=== PATIENT | male | born 1965 | race African-American/Black ===

== ENCOUNTER 2019-03-02 02:16 | Inpatient (IN) | payer BC, OTHER ==
[~2019-03-02] VITALS: Ht 177.8 cm; Wt 79.4 kg
[~2019-03-02 02:16] MED LIST: NOHOMEMEDICATIONS
[2019-03-02 02:23] VITALS: BP 135/103
[2019-03-02 02:51] LABS: HEMATOCRIT 47.3 % (42.0-52.0); HEMOGLOBIN 16.1 gm/dL (14.0-18.0); MCH 31.9 pg (26.0-34.0); MCV 93.8 fL (80.0-100.0); PLATELET COUNT 362 thou/uL (150-400); RBC 5.04 mil/uL (4.50-6.00); RDW 13.6 % (10.5-14.5); WBC 9.8 thou/uL (4.0-11.0)
[2019-03-02 02:59] LABS: ANION GAP 13 mmol/L (7-16); BUN 9 mg/dL (7-18); CALCIUM 9.2 mg/dL (8.5-10.1); CHLORIDE 103 mmol/L (98-107); CO2 25 mmol/L (21-32); CREATININE 0.7 mg/dL (0.7-1.3); GLUCOSE 113 mg/dL (74-106); POTASSIUM 3.4 mmol/L (3.5-5.1); SODIUM 141 mmol/L (136-145)
[2019-03-02 03:11] LABS: ALBUMIN 3.9 g/dL (3.4-5.0); MAGNESIUM 2.1 mg/dL (1.8-2.4); SGOT 18 U/L (15-37); SGPT 22 U/L (30-65); TOTAL BILIRUBIN 0.3 mg/dL (<0.1-1.0); TOTAL PROTEIN 7.7 g/dL (6.4-8.2); TROPONIN-I <0.06 ng/mL (<0.06)
[2019-03-02 04:09] LABS: ABSOLUTE NEUTROPHILS 5.1 thou/uL (1.4-8.2); PLATELET ESTIMATE NORMAL
--- NOTE | 2019-03-02 08:20 | EKG ---
[address] [place] [address] ELECTROCARDIOGRAM REPORT Name: EDIS SAMUELS Room #: 170-5 ADM IN M.R.#: [id number] ������������������ Admission: 03/02/19 ������������������ Attend Phys: Yan Hi MD Discharge: ������������������ Date of : 61 Report #: [id number] ����������������������������������������������������������������� [id number] THIS REPORT FOR: //name// [facility] ED Test Date: 2019-03-02 Test Time: 02:18:54 Pat Name: EDIS SAMUELS Department: Room: 170 Gender: M Computer Systems Auditor: NADEEM : 1965 Requested By: Manuel Burroughs Order Number: [id number] MD: Azael Rodriguez Measurements Intervals [place] Rate: 140 P: PA: QRS: -16 QRSD: 86 T: 92 QT: 324 QTc: 495 Interpretive Statements Atrial fibrillation LVH with secondary repolarization abnormality Anterior Q waves, possibly due to LVH No previous ECG available for comparison Electronically Signed On 03-02-2019 8:20:05 CDT by Azael Rodriguez [email or web address] ��������������������������������������������� <ELECTRONICALLY SIGNED> ���������������������������������������� By: Azael Rodriguez MD, [facility] ��������������������������������������������� 03/02/19 0820 0218 0218 Azael Rodriguez MD, FACC /EPI
--- NOTE | 2019-03-02 13:57 | 2DMMODE ---
[facility] [address] [place] [address] 2 D/M-MODE ECHOCARDIOGRAM Name: EDIS SAMUELS Room #: 170-5 ADM IN .R.#: [id number] ������������� Admission: 03/02/19 ������������� Attend Phys: Yan Hi MD Discharge: ��� ������������� ��� Date of : 61 Date of Service: 03/02/19 1357 �� Report #: [id number] �������� ��������������������������������������������[id number] THIS REPORT FOR: //name// APPROVED REPORT Study performed: 03/02/2019 13:01:46 EXAM: Comprehensive 2D, Doppler, and color-flow Echocardiogram Patient Location: ER Status: routine BSA: 1.97 HR: 60 bpm BP: 151/88 mmHg Rhythm: NSR Other Information Study Quality: Good Indications Atrial Fibrillation Hx: HTN, tobacco abuse. 2D Dimensions RVDd: 42.19 mm IVSd: 16.40 (7-11mm) LVOT Diam: 24.65 (18-24mm) LVDd: 50.58 mm PWd: 11.46 (7-11mm) Ascending Ao: 42.97 (22-36mm) LVDs: 33.87 (25-40mm) Aortic Root: 42.16 mm Volumes Left Atrial Volume (Systole) Single Plane 4CH: 77.22 mL Single Plane 2CH: 78.50 mL LA ESV Index: 43.00 mL/m2 Aortic Valve AoV Peak Tomi.: 1.32 m/s AO Peak Gr.: 6.95 mmHg LVOT Max P.03 mmHg LVOT Max V: 1.12 m/s SCARLETT Vmax: 4.06 cm2 Mitral Valve E/A Ratio: 1.5 MV Decel. Time: 190.55 ms [facility] [address] [place] [address] 2 D/M-MODE ECHOCARDIOGRAM Name: EDIS SAMUELS Room #: 170-5 ADM IN [facility]#: [id number] ������������� Admission: 03/02/19 ������������� Attend Phys: Yan Hi MD Discharge: ��� ������������� ��� Date of : 61 Date of Service: 03/02/19 1357 �� Report #: [id number] �������� ��������������������������������������������[id number] MV E Max Tomi.: 0.91 m/s MV A Tomi.: 0.60 m/s MV PHT: 55.26 ms IVRT: 87.66 ms Pulmonary Valve PV Peak Tomi.: 1.26 m/s PV Peak Gr.: 6.31 mmHg Pulmonary Vein P Vein S: 0.49 m/s P Vein D: 0.48 m/s P Vein S/D Ratio: 1.02 Tricuspid Valve TR Peak Tomi.: 2.97 m/s RAP Estimate: 10.00 mmHg TR Peak Gr.: 35.35 mmHg PA Pressure: 45.00 mmHg Left Ventricle The left ventricle is normal size. There is normal LV segmental wall motion. Moderate concentric left ventricular hypertrophy. Left ventricular systolic function is normal. LVEF is 55-60%. Moderate diastolic dysfunction is present (pseudonormal filling). Right Ventricle The right ventricle is normal size. The right ventricular systolic function is normal. Atria Left atrium is mildly dilated. The right atrium size is normal. Aortic Valve The aortic valve is normal in structure. Mild aortic regurgitation. There is no aortic valvular stenosis. Mitral Valve The mitral valve is normal in structure. Mild mitral annular calcification. Trace mitral regurgitation. Tricuspid Valve The tricuspid valve is normal in structure. Mild tricuspid regurgitation. Estimated PAP is 42mmHg. Pulmonic Valve The pulmonary valve is normal in structure. Trace pulmonic [facility] [address] [place] [address] 2 D/M-MODE ECHOCARDIOGRAM Name: EDIS SAMUELS BERNARDO Room #: 170-5 ADM IN M.R.#: [id number] ������������� Admission: 03/02/19 ������������� Attend Phys: Yan Hi MD Discharge: ��� ������������� ��� Date of : 61 Date of Service: 03/02/19 1357 �� Report #: [id number] �������� ��������������������������������������������[id number] regurgitation. Great Vessels Aortic root is dilated at 4.2cm. Ascending aorta is dilated at 4.3cm. IVC is dilated and collapses <50% with inspiration. Pericardium There is no pericardial effusion. <Conclusion> The left ventricle is normal size. Moderate concentric left ventricular hypertrophy. Left ventricular systolic function is normal. Moderate diastolic dysfunction is present (pseudonormal filling). The right ventricle is normal size. Left atrium is mildly dilated. Mild aortic regurgitation. Mild mitral annular calcification. Trace mitral regurgitation. Mild tricuspid regurgitation. Estimated PAP is 42mmHg. Ascending aorta is dilated at 4.3cm. ��������������������������������������������� <ELECTRONICALLY SIGNED> ���������������������������������������� By: Aldair Slade MD ��������������������������������������������� 03/02/19 1357 1357 135 Aldair Slade MD /INF
[2019-03-02 14:20] VITALS: BP 151/88
--- NOTE | 2019-03-02 17:17 | NUR ---
PATIENT ARRIVED FROM ED AT 1545, ALERT AND ORIENTED X4. VSS AND SR ON THE MONITOR. ADMISSION COMPLETED AND POC INITIATED. CARDIZED GTT AT 5MG/HR. DENIES CP OR DISCOMFORT AND WILL CONTINUE WITH POC.
[2019-03-02 17:51] VITALS: BP 157/88
[2019-03-02 20:30] VITALS: BP 170/96
[2019-03-03 00:45] VITALS: BP 135/73
[2019-03-03 01:28] LABS: AMP/METHAMP Negative (Negative); BARBITURATES Negative (Negative); BENZODIAZEPINES Negative (Negative); COCAINE Negative (Negative); METHADONE Negative (Negative); OPIATES Negative (Negative); PCP Negative (Negative)
[2019-03-03 04:45] VITALS: BP 158/87
--- NOTE | 2019-03-03 05:14 | NUR ---
ASSUMED PT CARE AT 1900 WITH NO SIGN OF DISTRESS NOTED. PT IS ALERT AND ORIENTED. FAMILY AT BEDSIDE. ASSESSMENT COMPLETED AND DOCUMENTED. SCHEDULED MEDS ADMINISTERED TO PT. PT IS STABLE THROUGHOUT THE NIGHT. NO COMPLIANTS OF PAIN. DENIES ANY NEEDS AT THIS TIME.
[2019-03-03 05:31] LABS: CALCIUM 8.9 mg/dL (8.5-10.1); CREATININE 0.6 mg/dL (0.7-1.3); POTASSIUM 3.8 mmol/L (3.5-5.1)
[2019-03-03 08:28] VITALS: BP 149/86
[2019-03-03] MEDS ORDERED: ASPIR 8181 MG PO (16:17)
[2019-03-03] MEDS ORDERED: DILTIAZEM 24HR180 M1 PO (16:36)
[2019-03-03] MEDS ORDERED: ASPIRIN325 PO (16:39)
[2019-03-03 16:46] VITALS: BP 149/86
--- NOTE | 2019-03-03 18:08 | NUR ---
ASSUMED CARE OF PATIENT AT 0700. ASSESSMENTS CHARTED. PATIENT UNDERWENT NUC MED STRESS TEST TODAY AND TOLLERATED PROCEDURE WELL. PATIENT DENIES ANY CHEST PAIN DURING MY SHIFT. PATIENT IS SR ALL DAY WITH HR 70-85. IV AND TELE REMOVED. RX GIVEN TO PATIENT WITH INFORMATION SHEET. DISCHARGE PAPERWORK SIGNED. PATIENT STATES THAT HE FEELS MUCH BETTER THAN HE DID WHEN HE ARRIVED. PATIENT TAKEN OUT VIA WHEELCHAIR AND DRIVEN HOME BY A FAMILY MEMBER.
== END 2019-03-03 17:15 | disposition home or self-care (01) | DRG 310 ==
LOC: ER 02:16 → EROBS 03:56 → 2N 15:35 → ENTRNSPT 03-03 16:59 → 2N 03-03 17:15
PROVIDERS: Emergency Medicine; Nurse Practitioner Family; ADMIT Hospitalist
DX: I48.0 Paroxysmal atrial fibrillation (principal); F17.210 Nicotine dependence, cigarettes, uncomplicated; I10 Essential (primary) hypertension; E78.00 Pure hypercholesterolemia, unspecified; F10.10 Alcohol abuse, uncomplicated; F12.10 Cannabis abuse, uncomplicated; R07.9 Chest pain, unspecified; E66.9 Obesity, unspecified; Z90.49 Acquired absence of other specified parts of digestive tract; Z68.25 Body mass index [BMI] 25.0-25.9, adult; Z71.6 Tobacco abuse counseling; Z71.41 Alcohol abuse counseling and surveillance of alcoholic; Z82.49 Family history of ischemic heart disease and other diseases of the circulatory system; Z93.3 Colostomy status
CPT/HCPCS: 10081